=== PATIENT | female | born 1995 | race Caucasian/White ===

== ENCOUNTER 2021-01-19 22:58 | Inpatient (IN) | payer OTHER ==
[~2021-01-19] VITALS: Ht 162.6 cm; Wt 78.5 kg
[2021-01-19 23:11] VITALS: BP 121/67
[2021-01-19] MEDS ORDERED: ZYRTEC10 M5 PO (23:17)
[2021-01-20 01:45] LABS: HEMATOCRIT 35.1 % (37.0-47.0); HEMOGLOBIN 12.7 gm/dL (12.0-15.0); MCH 30.8 pg (26.0-34.0); MCHC 36.3 g/dL (28.0-37.0); NUCLEATED RBCS 0 /100WBC; PLATELET COUNT* 173 thou/uL (150-400); RBC 4.12 mil/uL (4.20-5.00); RDW-CV 12.6 % (10.5-14.5); WBC 7.6 thou/uL (4.0-11.0)
[2021-01-20 02:48] LABS: ABSOLUTE MONOCYTES 0.1 thou/uL (0.0-1.2); ABSOLUTE NEUTROPHILS 6.5 thou/uL (1.6-8.1); PLATELET ESTIMATE ADEQUATE
[2021-01-20 03:54] LABS: CALCIUM 7.6 mg/dL (8.5-10.1); CREATININE 0.8 mg/dL (0.6-1.3); POTASSIUM 3.1 mmol/L (3.5-5.1)
[2021-01-20 03:59] LABS: ALBUMIN 2.6 g/dL (3.4-5.0); TOTAL BILIRUBIN 2.1 mg/dL (<0.1-1.0); TOTAL PROTEIN 6.3 g/dL (6.4-8.2)
--- NOTE | 2021-01-20 06:13 | NUR ---
PT PUT IN THE PRONE POSITION TO HELP INCREASE OXYGENATION.
--- NOTE | 2021-01-20 06:35 | NUR ---
SPOKE WITH DR. WILKERSON VIA PHONE. NOTIFIED HER OF THE PATIENTS CURRENT STATUS AND RECIEVED NEW ORDERS.
[2021-01-20 07:30] VITALS: BP 112/70
[2021-01-20 08:03] LABS: BE -4.7 mmol/L (-2 to +3); PCO2 28.5 mmHg (35.0-45.0); PO2 119.1 mmHg (75.0-100.0); pH 7.426 (7.340-7.450)
[2021-01-20 10:03] VITALS: BP 125/77
[2021-01-20 11:30] VITALS: BP 126/75
--- NOTE | 2021-01-20 11:48 | EKG ---
[place] [address] ELECTROCARDIOGRAM REPORT Name: GUANAKO ARITA Room: [place] [address] ADM IN [facility]#: [id number] Admission: 01/20/21 Attend Phys: Lisa Andrade, Discharge: Date of : 89 Date of Service: 01/19/21 2318 Report #: [id number] THIS REPORT FOR: //name// [facility] ED Test Date: 2021-01-19 Test Time: 23:18:21 Pat Name: GUANAKO ARITA Department: Room: [place] [address] Gender: F Guide Escort: YVETTE : 1995 Requested By: Octavia Medina Order Number: [id number] Humberto MD: Guy Chiu Measurements Intervals Somis Rate: 109 P: 27 MI: 152 QRS: 55 QRSD: 76 T: -20 QT: 323 QTc: 436 Interpretive Statements Sinus tachycardia Borderline T abnormalities, diffuse leads No previous ECG available for comparison Electronically Signed On 01-20-2021 11:48:02 CDT by Guy Chiu [email or web address] <ELECTRONICALLY SIGNED> By: Guy Chiu MD, [facility] 01/20/21 1148 2318 2318 Guy Chiu MD, [facility] /EPI
--- NOTE | 2021-01-20 13:15 | NUR ---
TRANSFERED FROM ER TO ROOM 103 IN STABLE CONDITION. A&OX 4, PWD. LUNGS DIMINISHED ON HF 02 AT 15L.
[2021-01-20 13:56] VITALS: BP 112/71
[2021-01-20 16:00] VITALS: BP 103/63
[2021-01-20 16:58] LABS: CALCIUM 7.9 mg/dL (8.5-10.1); CREATININE 0.7 mg/dL (0.6-1.3); POTASSIUM 3.2 mmol/L (3.5-5.1)
[2021-01-20 17:02] LABS: PROTIME 10.4 Seconds (9.20-11.50)
--- NOTE | 2021-01-20 19:34 | NUR ---
A&OX 4, PWD. PT TOLERATED SITTING UP IN BED THEN MOVED TO RECLINER CHAIR AND HAS BEEN SITTING UP ALL AFTERNOON. LUNGS DIMINISHED THROUGHTOUT. ON HF 02 AT 15L. 02 SAT'S 94%. UP TO COMMODE WITH STAND BY ASSIST. IV'S RIGHT AND LEFT AC. BOTH PATENT AND CURRENTLY SALINE LOCKED. POTASSIUM LOW 3.2 AND WAS GIVEN 40MEQ PO. MAG ALSO LOW AND WAS GIVEN 400MG PO. NO C/O AT THIS TIME. WILL CONTINUE TO MONITOR.
[2021-01-20 20:00] VITALS: BP 107/62
--- NOTE | 2021-01-20 23:05 | NUR ---
ASSUMED CARE OF PT AT 1900. PT IS ALERT AND ORIENTED X'S 4. VSS. PERRLA. NO COMPLAINTS OF PAIN. PT IS ON 15 LITERS HIGH FLOW NASAL CANNULA. O2 TURNED DOWN TO 12 LITERS. PT IS IN SINUS RYTHM ON THE TELEMETRY. PT IS RESTING COMFORTABLY IN BED. RESPIRATIONS ARE EVEN AND NONLABORED. WILL CONTINUE TO MONITOR PT.
[2021-01-21 00:02] VITALS: BP 101/57
[2021-01-21 04:00] VITALS: BP 102/67
[2021-01-21 04:52] LABS: ABSOLUTE LYMPHOCYTES 1.2 thou/uL (0.8-5.3); ABSOLUTE MONOCYTES 0.4 thou/uL (0.0-1.2); ABSOLUTE NEUTROPHILS 3.9 thou/uL (1.6-8.1); BASOPHILS 0.2 %; HEMATOCRIT 36.8 % (37.0-47.0); LYMPHOCYTES 22.7 %; MCH 30.8 pg (26.0-34.0); MCHC 35.4 g/dL (28.0-37.0); MONOCYTES 6.5 %; NUCLEATED RBCS 0 /100WBC; PLATELET COUNT* 229 thou/uL (150-400); POLYS 70.6 %; RBC 4.23 mil/uL (4.20-5.00); RDW-CV 12.8 % (10.5-14.5); WBC 5.5 thou/uL (4.0-11.0)
[2021-01-21 05:16] LABS: ALBUMIN 2.6 g/dL (3.4-5.0); CALCIUM 8.3 mg/dL (8.5-10.1); CREATININE 0.7 mg/dL (0.6-1.3); MAGNESIUM 2.5 mg/dL (1.8-2.4); TOTAL BILIRUBIN 1.5 mg/dL (<0.1-1.0); TOTAL PROTEIN 6.6 g/dL (6.4-8.2)
[2021-01-21 05:30] LABS: POTASSIUM 4.3 mmol/L (3.5-5.1)
[2021-01-21 08:51] VITALS: BP 107/56
[2021-01-21 09:34] LABS: PCO2 28.4 mmHg (35.0-45.0); PO2 79.2 mmHg (75.0-100.0); pH 7.438 (7.340-7.450)
[2021-01-21 15:18] VITALS: BP 91/54
--- NOTE | 2021-01-21 15:23 | NUR ---
CM ASSESSMENT: PT COVID POSITIVE AND CURRENTTLY UNDER ENHANCED PRECAUTIONS. PT A&O, INDEPENDENT WITH ADL'S, ACTIVE, AND WORKS OUTSIDE THE HOME. PT RESIDES AT HOME WITH SPOUSE. PT USES 0 DME. PT HAS 0 HX OF HH OR SNF. PT CURRENTLY ON 12L O2 AND DID NOT HAVE HOME OXYGEN PRIOR TO ADMIT. CM SPOKE TO THE PT TO DISCUSS DPOA. PT DECLINED DESPITE EDUCATION AND ENCOURAGEMENT. CM D/C PLANNING NEEDS TBD AT THIS TIME. CM WILL REMAIN AVAILABLE TO ASSIST AND FOLLOW NEEDED.
[2021-01-21 20:00] VITALS: BP 125/62
[2021-01-22] VITALS (7 sets, daily range): BP systolic 98–111; BP diastolic 51–67
[2021-01-22 05:00] LABS: ABSOLUTE LYMPHOCYTES 1.1 thou/uL (0.8-5.3); ABSOLUTE MONOCYTES 0.6 thou/uL (0.0-1.2); ABSOLUTE NEUTROPHILS 10.4 thou/uL (1.6-8.1); BASOPHILS 0.1 %; HEMATOCRIT 36.1 % (37.0-47.0); HEMOGLOBIN 12.5 gm/dL (12.0-15.0); LYMPHOCYTES 9.3 %; MCH 30.1 pg (26.0-34.0); MCHC 34.6 g/dL (28.0-37.0); MONOCYTES 4.7 %; MPV 8.8 fl. (7.2-11.1); NUCLEATED RBCS 0 /100WBC; PLATELET COUNT* 295 thou/uL (150-400); POLYS 85.9 %; RBC 4.15 mil/uL (4.20-5.00); RDW-CV 12.6 % (10.5-14.5); WBC 12.1 thou/uL (4.0-11.0)
[2021-01-22 05:12] LABS: PREALBUMIN 17.9 mg/dL (18.0-35.7)
[2021-01-22 05:14] LABS: ALBUMIN 2.6 g/dL (3.4-5.0); CALCIUM 8.1 mg/dL (8.5-10.1); CREATININE 0.8 mg/dL (0.6-1.3); MAGNESIUM 2.4 mg/dL (1.8-2.4); POTASSIUM 4.2 mmol/L (3.5-5.1); TOTAL BILIRUBIN 1.3 mg/dL (<0.1-1.0); TOTAL PROTEIN 6.4 g/dL (6.4-8.2)
--- NOTE | 2021-01-22 07:10 | NUR ---
CHANGE OF SHIFT REPORT GIVEN PATIENT SEEN AT BEDSIDE, IN BED WATCHING TV ASSUMED PATIENT CARE
[2021-01-23 00:23] VITALS: BP 117/65
[2021-01-23 04:51] VITALS: BP 110/63
[2021-01-23 05:36] LABS: ABSOLUTE LYMPHOCYTES 1.2 thou/uL (0.8-5.3); ABSOLUTE MONOCYTES 0.8 thou/uL (0.0-1.2); ABSOLUTE NEUTROPHILS 10.5 thou/uL (1.6-8.1); BASOPHILS 0.1 %; HEMATOCRIT 35.6 % (37.0-47.0); HEMOGLOBIN 12.4 gm/dL (12.0-15.0); LYMPHOCYTES 9.6 %; MCH 29.9 pg (26.0-34.0); MCHC 34.9 g/dL (28.0-37.0); MCV 85.9 fL (80.0-100.0); MONOCYTES 6.3 %; MPV 8.8 fl. (7.2-11.1); NUCLEATED RBCS 0 /100WBC; PLATELET COUNT* 329 thou/uL (150-400); RBC 4.14 mil/uL (4.20-5.00); RDW-CV 12.6 % (10.5-14.5); WBC 12.5 thou/uL (4.0-11.0)
[2021-01-23 05:58] LABS: PREALBUMIN 26.6 mg/dL (18.0-35.7)
[2021-01-23 06:07] LABS: ALBUMIN 2.7 g/dL (3.4-5.0); CALCIUM 8.2 mg/dL (8.5-10.1); CREATININE 0.8 mg/dL (0.6-1.3); POTASSIUM 4.1 mmol/L (3.5-5.1); TOTAL BILIRUBIN 0.9 mg/dL (<0.1-1.0); TOTAL PROTEIN 6.3 g/dL (6.4-8.2)
--- NOTE | 2021-01-23 07:10 | NUR ---
CHANGE OF SHIFT REPORT GIVEN PATIENT SEEN AT BEDSIDE, IN BED WATCHING TV ASSUMED PATIENT CARE
[2021-01-23 08:00] VITALS: BP 109/47
[2021-01-23 12:00] VITALS: BP 130/46
[2021-01-23 16:00] VITALS: BP 109/71
[2021-01-23 20:00] VITALS: BP 109/67
[2021-01-24 00:29] VITALS: BP 105/63
--- NOTE | 2021-01-24 02:09 | NUR ---
PT ALERT ORIENTED. UP AD XIOMARA IN ROOM. O2 AT 1 LITERS NC. CABLE SPLICER TRACING SR.
[2021-01-24 04:25] VITALS: BP 105/65
--- NOTE | 2021-01-24 06:00 | NUR ---
PT HAD O2 OFF THIS AM. O2 SAT ON RA 95% PT REMAINS ON RA AT THIS TIME.
[2021-01-24 06:58] LABS: ABSOLUTE LYMPHOCYTES 1.8 thou/uL (0.8-5.3); ABSOLUTE MONOCYTES 0.9 thou/uL (0.0-1.2); ABSOLUTE NEUTROPHILS 7.7 thou/uL (1.6-8.1); BASOPHILS 0.2 %; HEMATOCRIT 36.7 % (37.0-47.0); LYMPHOCYTES 17.6 %; MCH 30.3 pg (26.0-34.0); MCHC 35.5 g/dL (28.0-37.0); MCV 85.2 fL (80.0-100.0); MONOCYTES 8.6 %; MPV 8.8 fl. (7.2-11.1); NUCLEATED RBCS 0 /100WBC; PLATELET COUNT* 354 thou/uL (150-400); POLYS 73.6 %; RBC 4.31 mil/uL (4.20-5.00); RDW-CV 12.4 % (10.5-14.5); WBC 10.4 thou/uL (4.0-11.0)
[2021-01-24 07:26] LABS: ALBUMIN 2.8 g/dL (3.4-5.0); CREATININE 0.7 mg/dL (0.6-1.3); POTASSIUM 3.8 mmol/L (3.5-5.1); TOTAL BILIRUBIN 0.9 mg/dL (<0.1-1.0); TOTAL PROTEIN 6.4 g/dL (6.4-8.2)
[2021-01-24 08:00] VITALS: BP 107/59
[2021-01-24] MEDS ORDERED: DEXAMETHASONE1 MG PO (10:47)
[2021-01-24] MEDS ORDERED: PROTONIX40 M4 PO (10:47)
[2021-01-24] MEDS ORDERED: DOXYCYCLINE 10100 MG PO (10:47)
[2021-01-24 13:03] VITALS: BP 98/55
[2021-01-24 14:08] VITALS: BP 98/55
--- NOTE | 2021-01-24 16:37 | NUR ---
PLAN OF CARE: PHYSISICIAN INFORMS PF PLAN FOR THE PT TO D/C. PER CHART REST AND EXERCISE HAS BEEN COMPLETED AND INDICATES NO O2 NEEDED. NO OTHER CM D/C PLANNING NEEDED. CM WILL REMAIN AVAILABLE TO ASSIST AND FOLLOW NEEDED.
--- NOTE | 2021-01-24 16:40 | CON ---
[address] [address] CONSULTATION Name: GUANAKO ARITA Room: [address] IN ..#: [id number] Admission: 01/20/21 Attend Phys: Lisa Andrade MD Discharge: Date of : 89 Report #: [id number] THIS REPORT FOR: cc: EUGENIO - No family physician/PCP FAM - No family physician/PCP Monroe Aldana MD ~ DATE OF CONSULTATION: 01/20/2021 REQUESTING PHYSICIAN: Dr. Curt Fuentes. INDICATION FOR CONSULTATION: Acute hypoxemic respiratory failure secondary to COVID-19. HISTORY OF PRESENT ILLNESS: A 25-year-old female. She is a lifetime nonsmoker, does not have a history of a cardiac or respiratory disease with the exception that she has had some allergic rhinitis. The patient now reports that she was diagnosed with COVID-19 about a week ago. She has had significant increase in shortness of breath. She has been coughing, has had a high-grade fever. Not much sputum, though no chest pain. Some blocked nose and runny nose. No increase in swelling of lower extremities, no calf pain. No nausea, vomiting or diarrhea. The patient states that she has taken ibuprofen as well as Tylenol, but has not taken any steroids or antibiotics prior to this admission. She has been anxious. She was found to be hypoxemic on presentation. Currently, she is requiring 15 liters of oxygen to maintain O2 saturation in the low 90s. Blood pressure is towards the lower end of normal range. She has a metabolic acidosis as well as respiratory alkalosis on her arterial blood gas. Potassium has been low. REVIEW OF SYSTEMS: Negative for 12 points except as mentioned above. PAST MEDICAL HISTORY: Seasonal allergic rhinitis. SOCIAL HISTORY: Lifetime nonsmoker. No known history of heavy alcohol use or illegal drug use. CURRENT MEDICATIONS: List in [facility] reviewed. HOME MEDICATIONS: Zyrtec, ibuprofen and Tylenol. ALLERGIES: No known drug allergies. FAMILY HISTORY: No pertinent family history. PHYSICAL EXAMINATION: [place] [address] CONSULTATION Name: GUANAKO ARITA Room: [address]#: [id number] Admission: 01/20/21 Attend Phys: Lisa Andrade MD Discharge: Date of : 89 Report #: [id number] GENERAL: She is alert, awake and oriented. She had difficulty hearing me. There was noise from the negative pressure fan in the room and I was also wearing an N95 mask as well as facial, not fully apparent to me as to whether the patient actually is hard of hearing. She had difficulty hearing me because of these factors. VITAL SIGNS: Has a pulse of 101, blood pressure 103/63, saturating 93-94%, 15 liters nasal cannula. Febrile; temperature 38.3 earlier, now 37.6. Body mass index 29.7. HEENT: Head is normocephalic and atraumatic. Pupils are equal and reactive. There is no throat erythema. NECK: Does not show raised JVP, asymmetry, mass or lymph nodes. CHEST: Symmetrical expansion on inspection and palpation. On auscultation, breath sounds are bilaterally equal. I do not hear any added sounds. HEART: Regular. There is no murmur. ABDOMEN: Soft and nontender. EXTREMITIES: Lower extremities, no edema, no calf tenderness. SKIN: Dry and intact. NEUROLOGIC: Moves all extremities bilaterally equally and spontaneously with no focal deficit identified. LABORATORY DATA: The patient's lab work is in [facility]. This is reviewed. I repeated labs now as well. These are also reviewed. Coagulation studies reviewed. Low magnesium and potassium levels noted. BUN is only 6. Chest x-ray and CTA chest films as well as report reviewed. In summary, there are extensive infiltrates. I suspect that there is in addition to ARDS secondary to COVID-19. There is also secondary bacterial pneumonia. There may be a component of pulmonary vascular congestion as well. There are no pulmonary emboli identified. ASSESSMENT AND PLAN: 1. Acute hypoxemic respiratory failure secondary to COVID-19. Continue to titrate oxygen. Agree with Xopenex. Recommend incentive spirometry. Recommend prone positioning if possible, if not prone then recommend laying on sides or sitting up, avoid lying supine. 2. COVID-19, agree with dexamethasone as well as Remdesivir has currently ordered. I also went ahead and administered 1 dose of Actemra. I discussed in detail with the patient the risks and benefits of administration of convalescent plasma, the patient elected to not receive convalescent plasma. 3. Pulmonary infiltrates. Chest x-rays and the CTA is consistent with secondary bacterial infection as well. We will continue with ceftriaxone, I increased the dose. Added azithromycin. 4. Mild fluid overload. Her BUN is low. It appears to me that she is overall total body fluid overloaded. Her potassium is low, so I did not give her Lasix now. Blood pressure is also on the lower side. We will replace potassium and [facility] [address] [place] [address] CONSULTATION Name: GUANAKO ARITA Room: [address] IN M.R.#: [id number] Admission: 01/20/21 Attend Phys: Lisa Andrade MD Discharge: Date of : 89 Report #: [id number] magnesium first. We will give her midodrine if she is hypotensive. We will subsequently consider furosemide later on. 5. Hypokalemia and hypomagnesemia. I went ahead and gave her 1 dose of potassium chloride as well as Aldactone and magnesium sulfate, recommend replacing with more potassium if indicated. 6. Metabolic acidosis as well as a respiratory alkalosis. If significant metabolic acidosis persists, then may need bicarbonate down the line, I decided to hold off for now. Repeat arterial blood gas at 8:00 a.m. tomorrow. 7. Deep venous thrombosis prophylaxis, intermediate dose of Lovenox. 8. Elevated D-dimer. We will also do venous Dopplers. 9. Gastrointestinal prophylaxis, Protonix. 10. Clostridium difficile prophylaxis, Lactinex. Thanks for this consultation. <ELECTRONICALLY SIGNED> By: Monroe Aldana MD 01/24/21 1640 1941 [id number] Aldana MD /nt
--- NOTE | 2021-01-24 18:30 | NUR ---
RECEIVED REPORT AROUND 0715. ASSUMED CARE. VS AND ASSESSMENT CHARTED. IV'S INTACT. HEART MONITOR ATTACHED AT SB THIS AM. MEDS GIVEN PER SEP. HOURLY ROUNDING PERFORMED. NO PAIN THIS SHIFT. DISCHARGE ORDERS RECEIVED. REST AND EXERCISE PER RESPIRATORY THERAPY. NO O2 NEEDED. IV'S TAKEN OUT. HEART MONITOR OFF. DISCHARGE PACKET GIVEN TO PT. COMMUNICATED UNDERSTANDING. PT LEFT VIA WHEELCHAIR WITH ALL BELONGINGS AND NURSING STAFF OFF UNIT AT 1825.
== END 2021-01-24 18:25 | disposition home or self-care (01) | DRG 871 ==
LOC: M.ERS 22:58 → M.ORTHSURG 01-20 03:45 → M.TBA-ER 01-20 03:45 → M.ORTHSURG 01-20 13:26
PROVIDERS: Internal Medicine; Internal Medicine Critical Care Medicine; Personal Emergency Response Attendant; ADMIT Internal Medicine; ATTEND Internal Medicine
PROC: 5A09357 Assistance with Respiratory Ventilation, Less than 24 Consecutive Hours, Continuous Positive Airway Pressure (ICD-10-PCS; principal; 2021-01-20)
PROC: XW033E5 Introduction of Remdesivir Anti-infective into Peripheral Vein, Percutaneous Approach, New Technology Group 5 (ICD-10-PCS; principal; 2021-01-20)
PROC: 5A0935A Assistance with Respiratory Ventilation, Less than 24 Consecutive Hours, High Flow/Velocity Cannula (ICD-10-PCS; principal; 2021-01-20)
PROC: 5A0935A Assistance with Respiratory Ventilation, Less than 24 Consecutive Hours, High Flow/Velocity Cannula (ICD-10-PCS; 2021-01-21)
PROC: 5A0935A Assistance with Respiratory Ventilation, Less than 24 Consecutive Hours, High Flow/Velocity Cannula (ICD-10-PCS; 2021-01-22)
DX: A41.89 Other specified sepsis (principal); U07.1 COVID-19; J96.01 Acute respiratory failure with hypoxia; J12.82 Pneumonia due to coronavirus disease 2019; E87.2 Acidosis; E87.3 Alkalosis; E87.70 Fluid overload, unspecified; E87.6 Hypokalemia; E83.42 Hypomagnesemia; F41.9 Anxiety disorder, unspecified; Z79.899 Other long term (current) drug therapy